=== PATIENT | female | born 1995 | race Caucasian/White ===

== ENCOUNTER 2022-02-21 19:34 | Emergency (ER) | payer SELFPAY ==
[2022-02-21 20:12] VITALS: BP 105/61; PULSE 101; RESP 16; TEMP 37.6; O2SAT 100; BMI 16.1
--- NOTE | 2022-02-21 20:13 | ED_ITS ---
HPI - Skin/Abscess/Foreign Bdy General: Stated complaint: Abscess on L arm Time Seen by Provider: 02/21/22 20:12 Discharge Plan Discharge Condition: Stable Coding Level of Care Code ED Agricultural Real Estate Agent for Vasile Chaparro
--- NOTE | 2022-02-21 20:18 | W.ED.SKABFB ---
HPI - Skin/Abscess/Foreign Bdy General: Chief complaint: Skin/Abscess/Foreign Body Stated complaint: Abscess on L arm Time Seen by Provider: 02/21/22 20:12 History of Present Illness: Ms. Sesay is a 26-year-old lady with history of IV drug abuse with amphetamines though has not used for a few weeks who presents to the emergency department due to concern over arm infection. She reports 2 weeks ago noticing some redness initially in the distal anterior humerus region near the antecubital region however this has since spread. She notes pain with it as well as generalized malaise. Swelling is now circumferential as is erythema from approximately distal third point of humerus to proximal third point of radius/ulna. Additionally 4 days ago she had loss of range of motion of her elbow and essentially cannot move it at all from current position roughly 90 degrees. Denies history of frequent skin infections. Overall course of symptoms has been worsening. Intensity is moderate to severe. No other specific changes in health, exacerbating, or alleviating factors identified. She presents in law enforcement custody. Onset (ago): week(s) Location: LUE Severity: moderate Pain Consistency: constant Exacerbating factors: palpation Context: other Associated symptoms: Reports chills and other (Generalized malaise) Treatments prior to arrival: none Review of Systems General: Reports: 10 or more systems reviewed and unremarkable except in HPI and below Const: Reports: chills [facility] ED PFSH: Medical History History of intravenous drug abuse No significant past medical history Surgical History No significant past surgical history Social History Smoking and tobacco status: current every day smoker Substance/Drug Use: current Physical Exam Const: COMMON NORMALS: alert GENERAL APPEARANCE: cooperative, well developed and ill appearing (Mildly, uncomfortable due to pain) HENMT: COMMON NORMALS: normocephalic and atraumatic HEAD & SCALP: normocephalic and atraumatic Eye: COMMON NORMALS: conjunctivae normal CONJUNCTIVA: Yes conjunctivae normal SCLERA: sclerae normal Neck/C-Spine: COMMON NORMALS: supple GENERAL: Yes trachea midline Resp: COMMON NORMALS: normal respiratory effort and clear to auscultation bilaterally EFFORT & INSPECTION: Yes able to speak in complete sentences AUSCULTATION: clear to auscultation bilaterally Cardio: COMMON NORMALS: regular rhythm RATE: tachycardic RHYTHM: regular rhythm GI: COMMON NORMALS: Soft to palpation PALPATION: Yes Soft to palpation and No Tenderness to palpation present (GI) PERCUSSION: normal to percussion Extremity: NARRATIVE EXTREMITY EXAM: There is circumferential swelling to the left elbow region extending both distally and proximally. Area is tender to palpation with warmth and erythema most notably on the antecubital region. Patient has no range of motion even to passive range of motion even after pain control to the elbow which is roughly locked at 90 degrees. There is no significant distal abnormality, no evidence of hand swelling or neurovascular compromise distally. Strong radial and ulnar pulse. GENERAL: Yes edema Neuro: COMMON NORMALS: moves all extremities SENSORIUM/ORIENTATION: Yes alert and No Orientation impaired Psych: COMMON NORMALS: mental status grossly normal and Normal thought process present THOUGHT PROCESS: Normal thought process present Course ED course: - Patient was seen and evaluated by me at bedside - Patient placed on cardiac monitors, IV access obtained - Initial evaluation notable for exam as above - Labs and xrays personally interpreted by me. - [id number] care ultrasound performed revealing fluid collection however this appears atypical of superficial abscess including deep septations and what appeared to be fascial layers. Therefore advanced imaging felt to be necessary. - Labs notable for no leukocytosis, normocytic anemia. No acute metabolic derangement. CRP elevated with normal ESR. - Imaging notable for no obvious abnormality identified on plain film x-ray of elbow. CT notable for intramuscular large multilobulated abscess. There is no clear explanation on CT scan for reason patient is unable to flex or extend elbow. - Vancomycin and clindamycin given. Tdap and analgesia given. - Upon serial reexamination after treatment the patient was mildly improved with regards to pain - I discussed the case with initially general surgery at our facility and after further discussion I contacted orthopedics at our facility who felt that patient's needs exceeded the capability of our facility. I attempted to call closer facilities that were either limited secondary to bed availability or, after discussion with 1 orthopedic surgery physician, agreed that patient likely exceeded his capability and recommended transfer to a larger tertiary center for upper extremity specialist. - I discussed the case with Dr. Germán of the orthopedic surgery service at [facility] who accepted the patient as an ER to ER transfer for ignition specialist evaluation and treatment. - Based on patient history, evaluation, and testing as interpreted the most likely cause of the patient's condition is deep muscular abscess with orthopedic compromise that is high risk for progression and complication. - The results of ED evaluation were discussed with the patient including need for transfer for level of care not available at our facility including orthopedic upper extremity specialist. Patient agreeable to transfer. - Per discussion with [facility]entiary staff patient is being released to [facility] and is no longer in custody. - Patient transferred via EMS and left to this emergency department in satisfactory but guarded condition. Note: Click bubbles or prepopulated guzman in note writing are used for assistance with data collection and billing and are inherently more limited than narrative and other text portions of this note. Please use narrative for additional clinical history and defer to narrative/free test for any case of contradictory information. If information appears in only free text or click bubble it should be considered present or absent as reported. Please contact note sports writer for clarifications of clinical information or contradictory information. MDM is a brief summary, contradictory or erroneous seeming information should be clarified and full note should be reviewed. Vital Signs: Vital signs: Vital Signs Temperature 99.7 F H 02/21/22 20:12 Pulse Rate 68 02/22/22 03:37 Respiratory Rate 16 02/22/22 02:03 Blood Pressure 85/55 02/22/22 03:37 Pulse Oximetry 98 02/22/22 03:37 MDM - Skin/Abscess/Foreign Bdy Medicial Decision Making 26-year-old lady with history of injecting methamphetamine presenting due to arm cellulitis with frozen joint. Patient found to have deep intramuscular abscess and requires transfer for definitive management including orthopedic upper extremity specialist. Patient accepted to ED to ED transfer. Patient agreeable to plan. Medical Records I reviewed the patient's medical records. Lab Data I reviewed the patient's lab results. : 02/21/22 21:46 02/21/22 21:46 Radiology Impressions Elbow X-Ray 02/21/22 20:36 IMPRESSION: 1. No acute fracture of the left elbow. Followup imaging recommended in 7-14 days if clinical concern for fracture persists. 2. Moderate soft tissue swelling posterior to the proximal ulna. 3. No radiopaque foreign body. Elbow CT 02/21/22 21:02 IMPRESSION: Large multilobulated abscess centered in the distal left biceps. A small portion of the abscess extends into the anterior subcutaneous tissues. There is surrounding soft tissue infection/inflammation in the anterior compartment of the distal left upper arm and cellulitis around the left elbow. COMMENTS: THIS REPORT CONTAINS FINDINGS THAT MAY BE CRITICAL TO PATIENT CARE. The findings were verbally communicated via telephone conference with Nestor Bolivar at 10:30 PM CDT on 02/21/2022. The findings were acknowledged and understood. Laboratory Results WBC 8.6 10^3/uL (4.0-10.0) 02/21/22 21:46 RBC 3.51 10^6/uL (4.1-5.3) L 02/21/22 21:46 Hgb 10.6 g/dL (11.5-15.3) L 02/21/22 21:46 Hct 32.3 % (37.0-47.0) L 02/21/22 21:46 MCV 92.0 fl (81-99) 02/21/22 21:46 MCH 30.2 pg (28.0-34.0) 02/21/22 21:46 MCHC 32.8 g/dL (30.0-36.0) 02/21/22 21:46 RDW 12.8 % (12.1-15.1) 02/21/22 21:46 Plt Count 309 10^3/cmm (130-400) 02/21/22 21:46 MPV 9.9 fL (7.4-10.4) 02/21/22 21:46 Neut % (Auto) 62.2 % 02/21/22 21:46 Lymph % (Auto) 26.9 % 02/21/22 21:46 [place] % (Auto) 9.0 % 02/21/22 21:46 Eos % (Auto) 0.7 % 02/21/22 21:46 Baso % (Auto) 0.5 % 02/21/22 21:46 Neut # (Auto) 5.36 10^3/uL (1.8-7.7) 02/21/22 21:46 Lymph # (Auto) 2.3 10^3/uL (0.8-4.8) 02/21/22 21:46 [place] # (Auto) 0.8 10^3/uL (0.2-0.9) 02/21/22 21:46 Eos # (Auto) 0.1 10^3/uL (0.0-0.8) 02/21/22 21:46 Baso # (Auto) 0.0 10^3/uL (0.0-0.1) 02/21/22 21:46 Nucleated RBC % (auto) 0 % 02/21/22 21:46 Nucleated RBCs # 0.0 /100WBC 02/21/22 21:46 ESR 11 mm/hr (0-15) 02/21/22 21:46 Sodium 139 mmol/L (136-145) 02/21/22 21:46 Potassium 3.9 mmol/L (3.5-5.1) 02/21/22 21:46 Chloride 102 mmol/L (98-107) 02/21/22 21:46 Carbon Dioxide 29 mmol/L (22-29) 02/21/22 21:46 Anion Gap 11.9 (5-19) 02/21/22 21:46 BUN 10 mg/dL (6-20) 02/21/22 21:46 Creatinine 0.4 mg/dL (0.5-0.9) L 02/21/22 21:46 GFR Calculation 194.5 mL/min (90-130) H 02/21/22 21:46 Glucose 85 mg/dL (65-115) 02/21/22 21:46 Calculated Osmolality 286 mOsm/kg (285-295) 02/21/22 21:46 Lactic Acid 1.5 mmol/L (0.5-2.2) 02/21/22 21:46 Calcium 8.9 mg/dL (8.5-10.5) 02/21/22 21:46 C-Reactive Protein 77.2 mg/L (0.0-4.9) H 02/21/22 21:46 HCG, Qual Negative (Negative) 02/21/22 21:46 SARS-CoV-2 Ag (Rapid) Negative (Negative) 02/22/22 01:44 Discharge Plan Discharge Patient Disposition: Transfer to ED Clinical Impression: Cellulitis, Abscess of left upper extremity Condition: Stable Coding Level of Care Code ED Shadowgraph Scale Operator for Vasile Fwd Exam Comprehensive
--- NOTE | 2022-02-21 20:36 | XRR_ITS ---
PROCEDURE INFORMATION: Exam: XR Left Elbow Exam date and time: 02/21/2022 9:10 PM Age: 26 years old Clinical indication: Patient HX: Patient has swelling and redness to left elbow. C/O pain. ; Additional info: Abscess, ? foreign body TECHNIQUE: Imaging protocol: Radiologic exam of the Left elbow. Views: 3 or more views. COMPARISON: No relevant prior studies available. FINDINGS: Bones/joints: No acute fracture. No dislocation. Normal bone mineralization. No joint effusion. Joint spaces are maintained. Soft tissues: Moderate soft tissue swelling posterior to the proximal ulna. No radiopaque foreign body. XR/XR elbow LT min 3V* [id number] IMPRESSION: 1. No acute fracture of the left elbow. Followup imaging recommended in 7-14 days if clinical concern for fracture persists. 2. Moderate soft tissue swelling posterior to the proximal ulna. 3. No radiopaque foreign body.
--- NOTE | 2022-02-21 21:02 | CTR_ITS ---
PROCEDURE INFORMATION: Exam: CT Left Upper Extremity With Contrast, Elbow Exam date and time: 02/21/2022 9:55 PM Age: 26 years old Clinical indication: Patient HX: Swelling and redness to left elbow. C/O pain with reduced rom. ; Additional info: Swelling, pain rom, eval abscess/joint infection TECHNIQUE: Imaging protocol: Computed tomography of the Left upper extremity with contrast. Exam focused on the elbow. Sagittal and coronal reformatted images were created and reviewed. Radiation optimization: All CT scans at this facility use at least one of these dose optimization techniques: automated exposure control; mA and/or kV adjustment per patient size (includes targeted exams where dose is matched to clinical indication); or iterative reconstruction. Contrast material: OMNI 350; Contrast volume: 75 ml; Contrast route: INTRAVENOUS (IV); COMPARISON: CR ([facility], ) 02/21/2022 9:10 PM RADIATION DOSE METRICS: Total DLP (mGy-cm): 730.59 FINDINGS: Bones/joints: No acute fracture. No dislocation. Normal bone mineralization. No joint effusion. Joint spaces are maintained. No lytic or sclerotic bony lesions. Soft tissues: Diffuse moderate to severe subcutaneous edema in the visualized left arm. Inflammatory changes in the anterior compartment of the visualized distal left upper arm. There is a large multilobulated abscess centered in the distal left biceps measuring 6.4 x 4.8 x 4.3 cm (series 603, image 20 and series 4, image 41). A small portion of the abscess extends into the anterior subcutaneous tissues. No radiopaque foreign body. Vasculature: Visualized vessels are patent. CT/CT elbow LT w con [id number] IMPRESSION: Large multilobulated abscess centered in the distal left biceps. A small portion of the abscess extends into the anterior subcutaneous tissues. There is surrounding soft tissue infection/inflammation in the anterior compartment of the distal left upper arm and cellulitis around the left elbow. COMMENTS: THIS REPORT CONTAINS FINDINGS THAT MAY BE CRITICAL TO PATIENT CARE. The findings were verbally communicated via telephone conference with Nestor Bolivar at 10:30 PM CDT on 02/21/2022. The findings were acknowledged and understood.
[2022-02-21 21:56] LABS: Basophils % 0.5 %; Eosinophils # 0.1 10^3/uL (0.0-0.8); Eosinophils % 0.7 %; Hematocrit 32.3 % (37.0-47.0); Hemoglobin 10.6 g/dL (11.5-15.3); Lymphocytes # 2.3 10^3/uL (0.8-4.8); Lymphocytes % 26.9 %; Mean Corpuscular HGB Conc 32.8 g/dL (30.0-36.0); Mean Corpuscular Hemoglobin 30.2 pg (28.0-34.0); Mean Platelet Volume 9.9 fL (7.4-10.4); Monocytes # 0.8 10^3/uL (0.2-0.9); Neutrophils # 5.36 10^3/uL (1.8-7.7); Neutrophils % 62.2 %; Nucleated Red Blood Cells % 0 %; Platelet Count 309 10^3/cmm (130-400); Red Blood Count 3.51 10^6/uL (4.1-5.3); Red Cell Distribution Width 12.8 % (12.1-15.1); White Blood Count 8.6 10^3/uL (4.0-10.0)
[2022-02-21 22:02] LABS: Erythrocyte Sedimentation Rate 11 mm/hr (0-15)
[2022-02-21 22:06] LABS: HCG, Serum Qual Negative (Negative)
[2022-02-21] MEDS: iohexol 350 mg/mL 100 mL Btl IV (22:15)
[2022-02-21 22:16] LABS: Anion Gap 11.9 (5-19); Blood Urea Nitrogen 10 mg/dL (6-20); C Reactive Protein 77.2 mg/L (0.0-4.9); Calcium 8.9 mg/dL (8.5-10.5); Carbon Dioxide 29 mmol/L (22-29); Chloride 102 mmol/L (98-107); Glomerular Filtration Rate 194.5 mL/min (90-130); Glucose 85 mg/dL (65-115); Osmolality Calculated 286 mOsm/kg (285-295); Potassium 3.9 mmol/L (3.5-5.1); Sodium 139 mmol/L (136-145)
[2022-02-21] MEDS: clindamycin 600 MG/50 ML PREMIX 100 MG IV (23:17)
[2022-02-22 00:27] VITALS: RESP 14
[2022-02-22] MEDS: morphine 4 mg/mL SDV 1 mL IVP ×2 (00:27→02:03)
[2022-02-22] MEDS: acetaminophen 500 mg Tablet 1000 MG PO (00:29)
[2022-02-22] MEDS: nicotine 21 mg Patch 1 PATCH TRANSDERMA (00:31)
[2022-02-22 00:36] LABS: Lactic Sepsis W/Reflex 1.5 mmol/L (0.5-2.2)
[2022-02-22] MEDS: vancomycin 1,250 MG/250 ML PIGGYBACK 250 MG IV (01:49)
[2022-02-22 02:03] VITALS: RESP 16; O2SAT 97
[2022-02-22] MEDS: sodium chloride 0.9% 1,000 ML 75 ML IV (02:03)
[2022-02-22] MEDS: tetanus-dipt-pertussis 0.5 mL SDV IM (02:09)
[2022-02-22 02:23] LABS: SARS Covid-2 Antigen Negative (Negative)
[2022-02-22 03:37] VITALS: BP 85/55; PULSE 68; O2SAT 98
== END 2022-02-22 03:39 ==
PROVIDERS: Emergency Provider Emergency Medicine
DX: L03.114 Cellulitis of left upper limb (principal); L02.414 Cutaneous abscess of left upper limb; F15.10 Other stimulant abuse, uncomplicated; Z20.822 Contact with and (suspected) exposure to COVID-19
CPT/HCPCS: 73080; 73201; 80048; 83605; 84703; 85025; 85651; 86140; 87040; 87426; 90471; 90715; 96365; 96367; 96375; 96376; 99285; J2270; J3370; J3490; J7030; Q9967